=== PATIENT | male | born 1995 | race African-American/Black ===

== ENCOUNTER 2018-12-04 23:00 | Emergency (ER) | payer SELFPAY ==
[~2018-12-04] VITALS: Ht 172.7 cm; Wt 66.5 kg
--- NOTE | 2018-12-04 23:12 | ED.ADGEN ---
Past History Past Medical History: Anemia, Bronchitis, Other Smoking: Cigarettes Additional Smoking Information: Vapes Alcohol Use: Occasionally Adult General Chief Complaint Chief Complaint ".. I ve been coughing a lot.. some discolored sputum.. . sick.. I ve been vaping.. .. and my girl told me I should quit and get checked out...I need to get work excuse.. I work at [employer].... Sometime I cough so hard.. my chest hurts..." HPI HPI Patient is a 23 year old male who presents with above hx and complaints cough, chest pain, myalgia, dyspnea, and wheezing. Patient does give a history of tobacco use and Vaping. Patient shortly after arrival stated he did not like needles and refused lab draws. Did agree to strep screen and flu swabs. No recent travel. No specific ill contacts. No history immunosuppression. Symptoms of this cough and dyspnea have increased with his use of Vaping products. Patient is having history of anemia and asthma as a child. Review of Systems Review of Systems Constitutional: Denies fever or chills [] Eyes: Denies change in visual acuity, redness, or eye pain [] HENT: Denies nasal congestion or sore throat [] Respiratory: Complaints of cough, wheezing and shortness of breath [] Cardiovascular: No additional information not addressed in HPI [] GI: Denies abdominal pain, nausea, vomiting, bloody stools or diarrhea [] : Denies dysuria or hematuria [] Musculoskeletal: Denies back pain or joint pain [] Integument: Denies rash or skin lesions [] Neurologic: Denies headache, focal weakness or sensory changes [] Endocrine: Denies polyuria or polydipsia [] All other systems were reviewed and found to be within normal limits, except as documented in this note. Family History Family History Noncontributory to presentation Current Medications Current Medications Current Medications Medications (Trade) Dose Ordered Sig/Bin Start Time Stop Time Status Last Admin Dose Admin Albuterol Sulfate (Ventolin Hfa Inhaler) 2 puff 1X ONCE 12/04/18 23:15 12/04/18 23:31 DC 12/04/18 23:22 2 PUFF Lactated Ringer's 1,000 ml @ 1,000 mls/hr Q1H 12/05/18 00:00 12/05/18 00:59 DC Prednisone (Prednisone) 50 mg 1X ONCE 12/04/18 23:45 12/04/18 23:46 DC 12/04/18 23:36 50 MG Allergies Allergies Allergies Coded Allergies Type Severity Reaction Last Updated Verified No Known Drug Allergies 12/04/18 No Physical Exam Physical Exam Constitutional: Moderate acute distress, non-toxic appearance. [] HENT: Normocephalic, atraumatic, bilateral external ears normal, oropharynx moist, no oral exudates, nose normal. [] Eyes: PERRLA, EOMI, conjunctiva pale, no discharge. [] Neck: Normal range of motion, no tenderness, supple, no stridor. [] Cardiovascular: Bradycardia Heart rate regular rhythm, no murmur [] Lungs & Thorax: Bilateral breath sounds equal at apex with scattered wheezes on auscultation [] Abdomen: Bowel sounds normal, soft, no tenderness, no masses, no pulsatile masses. [] Skin: Warm, dry, no erythema, no rash. [] Back: No tenderness, no CVA tenderness. [] Extremities: No tenderness, no cyanosis, no clubbing, ROM intact, no edema. No cording in legs Neurologic: Alert and oriented X 3, normal motor function, normal sensory function, no focal deficits noted. [] Psychologic: Affect anxious, judgement normal, mood normal. [] Current Patient Data Vital Signs Vital Signs Date Time Temp Pulse Resp B/P (MAP) Pulse Ox O2 Delivery O2 Flow Rate FiO2 12/04/18 23:51 97.9 71 16 97 Room Air Lab Results Laboratory Tests Test 12/04/18 23:36 12/04/18 23:42 Influenza Type A (Rapid) Negative (NEGATIVE) Influenza Type B (Rapid) Negative (NEGATIVE) Group A Streptococcus Rapid Negative (NEGATIVE) EKG EKG My interpretation EKG shows a sinus rhythm at 65 bpm. There is an complete right bundle branch block. Some nonspecific anterior septal changes. But no findings acute STEMI of contralateral changes[] Radiology/Procedures Radiology/Procedures [][address] [address] IMAGING REPORT Signed PATIENT: MIRIAM MCCARTHY LACCOUNT: [id number] : 1995 LOCATION: ER AGE: 23 SEX: M EXAM STATUS: REG ER ORD. PHYSICIAN: VALERY LOMBARDO MD REASON: cp, vaping, dyspnea PROCEDURE: CHEST PA & LATERAL CHEST PA LATERAL Technique: PA and lateral views of the chest were obtained. Clinical History: Chest pain vaping and dyspnea Comparison: None. Findings: The heart and pulmonary vasculature appear within normal limits. The lungs are clear. The pleural margins are clear. Impression: No acute chest process is seen. Electronically signed by: Jorje Tavarez III, MD (12/04/2018 11:59 PM) [facility] [place] DICTATED AND SIGNED BY: JORJE TAVAREZ III, MD DATE: 12/04/18 5565 CC: VALERY LOMBARDO MD; PCP,NO ~ Course & Med Decision Making Course & Med Decision Making Pertinent Labs and Imaging studies reviewed. (See chart for details) Pt. refused meds except. Strept. and Flu test. Patient encouraged to stop smoking and Vaping. Patient return if he elects to complete his workup for chest pain in his cough. He didn't take prednisone 50 mg day for 5 days. Patient uses MDI 2 puffs 4 times a day. Patient encouraged to return if any concerns. Patient encouraged follow-up primary care. [] Final Impression Final Impression 1. Bronchitis[] 2. Viral syndrome 3. Tobacco and Vaping use 4. Hx. of Anemia Dragon Disclaimer Dragon Disclaimer This electronic medical record was generated, in whole or in part, using a voice recognition dictation system. Dragon Disclaimer This chart was dictated in whole or in part using Voice Recognition software in a busy, high-work load, and often noisy Emergency Department environment. It may contain unintended and wholly unrecognized errors or omissions. VALERY LOMBARDO MD Dec 04, 2018 23:12
[2018-12-04] MEDS ORDERED: ALBUTEROL SULFATE 8GM INHALER. INH ONE (23:15)
[2018-12-04] MEDS ORDERED: predniSONE 10 MG TABLET PO ONE (23:45)
[2018-12-04 23:51] VITALS: BP 111/62
--- NOTE | 2018-12-04 23:59 | EKG ---
[address] [address] Test Date: 2018-12-04 Test Time: 23:54:48 Pat Name: MIRIAM MCCARTHY Department: Room: Gender: M Stereoptician: : 1995 Requested By: VALERY LOMBARDO Order Number: [id number] Reading MD: Measurements Intervals [place] Rate: 65 P: 28 [place]: 158 QRS: 72 QRSD: 84 T: 41 QT: 350 QTc: 365 Interpretive Statements SINUS RHYTHM INCOMPLETE RIGHT BUNDLE BRANCH BLOCK QRS(T) CONTOUR ABNORMALITY CONSIDER ANTEROSEPTAL MYOCARDIAL DAMAGE POSSIBLY ABNORMAL ECG RI6.01 No previous ECG available for comparison
[2018-12-05] MEDS ORDERED: IV RINGERS SOLUTION,LACTATED 1,000 ML IV SCH
--- NOTE | 2018-12-05 00:02 | RAD ---
CHEST PA LATERAL Technique: PA and lateral views of the chest were obtained. Clinical History: Chest pain vaping and dyspnea Comparison: None. Findings: The heart and pulmonary vasculature appear within normal limits. The lungs are clear. The pleural margins are clear. Impression: No acute chest process is seen. Electronically signed by: Dayne Vargas III, MD (12/04/2018 11:59 PM) [facility]
[2018-12-05 00:45] LABS: INFLUENZA A PATIENT NEGATIVE (NEGATIVE); INFLUENZA B PATIENT NEGATIVE (NEGATIVE)
[2018-12-05] MEDS ORDERED: PRED50TA PO (02:17)
== END 2018-12-05 02:20 | disposition home or self-care (01) ==
LOC: ER 23:00
DX: J20.9 Acute bronchitis, unspecified (principal); B34.9 Viral infection, unspecified; F17.210 Nicotine dependence, cigarettes, uncomplicated; Z86.2 Personal history of diseases of the blood and blood-forming organs and certain disorders involving the immune mechanism
CPT/HCPCS: 71046; 87070; 87804; 87880; 93005; 94640; 99285; J7512; J7613

== ENCOUNTER 2019-06-18 02:57 | Emergency (ER) | payer SELFPAY ==
[~2019-06-18] VITALS: Ht 170.2 cm; Wt 63.0 kg
[~2019-06-18 02:57] MED LIST: PRED50TA PO
--- NOTE | 2019-06-18 03:23 | PHYS DOC ---
Past History Past Medical History: Anemia, Bronchitis, Other Past Surgical History: No Surgical History Smoking: Cigarettes Alcohol Use: Occasionally Drug Use: None General Adult EDM: Chief Complaint: SEXUALLY TRANSMITTED DISEASE HPI: HPI: 23-year-old male presents with penile discharge. He does have yellowish discharge from his penis today. He believes that his significant other has been having sexual relations with someone else. He is also had burning with urination yesterday and today. He wants to be treated prophylactically. He denies fever chills. He has no other complaints. Review of Systems: Review of Systems: Constitutional: Denies fever or chills Eyes: Denies change in visual acuity HENT: Denies nasal congestion or sore throat Respiratory: Denies cough or shortness of breath Cardiovascular: Denies chest pain or edema GI: Denies abdominal pain, nausea, vomiting, bloody stools or diarrhea : Penile discharge Musculoskeletal: Denies back pain or joint pain Integument: Denies rash Neurologic: Denies headache, focal weakness or sensory changes Endocrine: Denies polyuria or polydipsia Lymphatic: Denies swollen glands Psychiatric: Denies depression or anxiety Heart Score: Risk Factors: Risk Factors: DM, Current or recent (<one month) smoker, HTN, HLP, family history of CAD, obesity. Risk Scores: Score 0 - 3: 2.5% MACE over next 6 weeks - Discharge Home Score 4 - 6: 20.3% MACE over next 6 weeks - Admit for Clinical Observation Score 7 - 10: 72.7% MACE over next 6 weeks - Early Invasive Strategies Allergies: Allergies: Allergies Coded Allergies Type Severity Reaction Last Updated Verified No Known Drug Allergies 12/04/18 No Physical Exam: PE: Constitutional: Well developed, well nourished, no acute distress, non-toxic appearance. [] HENT: Normocephalic, atraumatic, bilateral external ears normal, oropharynx moist, no oral exudates, nose normal. [] Eyes: PERRLA, EOMI, conjunctiva normal, no discharge. [] Neck: Normal range of motion, no tenderness, supple, no stridor. [] Cardiovascular:Heart rate regular rhythm, no murmur [] Lungs & Thorax: Bilateral breath sounds clear to auscultation [] Abdomen: Bowel sounds normal, soft, no tenderness, no masses, no pulsatile masses. [] Skin: Warm, dry, no erythema, no rash. [] Back: No tenderness, no CVA tenderness. [] Extremities: No tenderness, no cyanosis, no clubbing, ROM intact, no edema. [] Neurologic: Alert and oriented X 3, normal motor function, normal sensory function, no focal deficits noted. [] Psychologic: Affect normal, judgement normal, mood normal. : Patient refused exam. [] EKG: EKG: [] Radiology/Procedures: Radiology/Procedures: [] Course & Med Decision Making: Course & Med Decision Making Pertinent Labs and Imaging studies reviewed. (See chart for details) The patient refused exam of his penis. He would like to be treated prophylactically. I will treat him with a gram of azithromycin and 250 mg of Rocephin. He is stable for discharge at this time. [] Dragon Disclaimer: Dragon Disclaimer: This electronic medical record was generated, in whole or in part, using a voice recognition dictation system. Departure Departure: Impression: Primary Impression: Concern about sexually transmitted disease in male without diagnosis Disposition: 01 HOME, SELF-CARE Condition: STABLE Referrals: PCPRANDY (PCP) Patient Instructions: Sexually Transmitted Disease, [id number] ALLEGRA NETTLES DO June 18, 2019 03:23
[2019-06-18 03:48] LABS: BILIRUBIN,URINE NEG (NEG); CLARITY,URINE HAZY; COLOR,URINE YELLOW; GLUCOSE,URINE NEG (NEG)
[2019-06-18 03:49] LABS: BACTERIA,URINE MOD /HPF (0-FEW); NITRITE,URINE NEG (NEG); RBC,URINE OCC /HPF (0-2); WBC,URINE >40 /HPF (0-4)
[2019-06-18] MEDS ORDERED: AZITHROMYCIN 250 MG TABLET. PO ONE (04:00)
[2019-06-18] MEDS ORDERED: cefTRIAXone IM 250 MG VIAL IM ONE (04:00)
== END 2019-06-18 03:43 | disposition home or self-care (01) ==
LOC: ER 02:57
DX: Z20.2 Contact with and (suspected) exposure to infections with a predominantly sexual mode of transmission (principal); F17.210 Nicotine dependence, cigarettes, uncomplicated; Z86.2 Personal history of diseases of the blood and blood-forming organs and certain disorders involving the immune mechanism
CPT/HCPCS: 81001; 87086; 87491; 87591; 96372; 99283; J0456; J0696; 36415

== ENCOUNTER 2019-06-21 16:30 | Emergency (ER) | payer SELFPAY ==
[~2019-06-21] VITALS: Ht 172.7 cm; Wt 64.5 kg
[2019-06-21 16:46] VITALS: BP 142/86
[2019-06-21] MEDS ORDERED: IV NORMAL SALINE 1,000ML 1,000 ML IV SCH (17:01)
--- NOTE | 2019-06-21 17:12 | PHYS DOC ---
Past History Past Medical History: No Pertinent History (WILDA SIMON MD) Past Surgical History: No Surgical History (WILDA SIMON MD) Smoking: Cigarettes Additional Smoking Information: 1/2 pack Alcohol Use: None Drug Use: None (WILDA SIMON MD) General Adult EDM: Chief Complaint: Palpitations HPI: HPI: Patient is a 23-year-old male who presents to the emergency department for evaluation. He states that for the past 3 to 4 days he has had a sense of palpitation, where his heart is beating fast. He denies any chest pain or significant shortness of breath, pleuritic pain, dizziness or lightheadedness. He has not had any numbness or weakness. He does admit to feeling anxious. He does admit to smoking marijuana regularly, and did recently take an oxycodone for back pain, but denies any stimulant use, including cocaine or amphetamines. He denies fevers or chills, or cough, or any other symptoms other than palpitations. He does admit to feeling anxious, and states his girlfriend also has anxiety. The patient was recently seen in the emergency department for penile discharge, 3 days ago, he states that his urinary and penile symptoms have improved. Review of his records revealed that he did test positive for both chlamydia and gonorrhea. He was treated with Rocephin and azithromycin in the emergency department. Upon initial assessment the patient's heart rate was noted to be in the 115-120 range, although after the patient has acclimated himself to his ER room, his heart rate is currently in the 80s. (WILDA SIMON MD) Review of Systems: Review of Systems: Constitutional: Denies fever or chills Eyes: Denies change in visual acuity HENT: Denies nasal congestion or sore throat Respiratory: Denies cough or shortness of breath, denies pleuritic chest pain Cardiovascular: Denies chest pain or edema GI: Denies abdominal pain, nausea, vomiting, bloody stools or diarrhea : Denies dysuria Musculoskeletal: Denies back pain or joint pain Integument: Denies rash Neurologic: Denies headache, focal weakness or sensory changes Endocrine: Denies polyuria or polydipsia Lymphatic: Denies swollen glands Psychiatric: Denies depression. Reports anxiety (WILDA SIMON MD) Heart Score: Risk Factors: Risk Factors: DM, Current or recent (<one month) smoker, HTN, HLP, family history of CAD, obesity. Risk Scores: Score 0 - 3: 2.5% MACE over next 6 weeks - Discharge Home Score 4 - 6: 20.3% MACE over next 6 weeks - Admit for Clinical Observation Score 7 - 10: 72.7% MACE over next 6 weeks - Early Invasive Strategies (WILDA SIMON MD) Current Medications: Current Meds: Current Medications Medications (Trade) Dose Ordered Sig/Bin Start Time Stop Time Status Last Admin Dose Admin Lorazepam (Ativan Inj) 1 mg 1X ONCE 06/21/19 17:15 06/21/19 17:16 UNV Sodium Chloride 1,000 ml @ 1,000 mls/hr Q1H 06/21/19 17:01 06/21/19 18:00 UNV (WILDA SIMON MD) Allergies: Allergies: Allergies Coded Allergies Type Severity Reaction Last Updated Verified No Known Drug Allergies 12/04/18 No (WILDA SIMON MD) Physical Exam: PE: PHYSICAL EXAM: CONSTITUTIONAL: Well developed, well nourished HEAD: normocephalic, atraumatic EENT: PERRL, EOMI. Conjunctivae normal color, sclerae non-icteric; moist mucous membranes. NECK: Supple, non-tender; no meningismus. LUNGS: Lungs CTA, breathing even and unlabored. Normal air movement. HEART: Regular tachycardia, no murmur CHEST: No deformity; non-tender ABDOMEN: The abdomen is soft, and non-tender, no masses or bruits. EXTREM: Normal ROM; no deformity, no calf tenderness. Normal pulses palpable in all extremities. There is no pedal edema. SKIN: No rash; no diaphoresis NEURO: Alert; normal speech and cognition; CN's grossly intact; strength grossly intact without focal deficit. BACK: No CVA TTP. PSYCHIATRIC: Patient appears mildly anxious. (WILDA SIMON MD) Current Patient Data: Labs: Laboratory Tests Test 06/21/19 16:55 White Blood Count 12.3 x10^3/uL Red Blood Count 4.89 x10^6/uL Hemoglobin 14.5 g/dL Hematocrit 44.6 % Mean Corpuscular Volume 91 fL Mean Corpuscular Hemoglobin 30 pg Mean Corpuscular Hemoglobin Concent 33 g/dL Red Cell Distribution Width 12.8 % Platelet Count 148 x10^3/uL Neutrophils (%) (Auto) 69 % Lymphocytes (%) (Auto) 21 % Monocytes (%) (Auto) 9 % Eosinophils (%) (Auto) 1 % Basophils (%) (Auto) 1 % Neutrophils # (Auto) 8.4 x10^3uL Lymphocytes # (Auto) 2.6 x10^3/uL Monocytes # (Auto) 1.0 x10^3/uL Eosinophils # (Auto) 0.1 x10^3/uL Basophils # (Auto) 0.1 x10^3/uL D-Dimer (Sendy) 0.56 mg/L Sodium Level 140 mmol/L Potassium Level 3.6 mmol/L Chloride Level 103 mmol/L Carbon Dioxide Level 25 mmol/L Anion Gap 12 Blood Urea Nitrogen 12 mg/dL Creatinine 1.1 mg/dL Estimated GFR (Cockcroft-Gault) 100.4 BUN/Creatinine Ratio 11 Glucose Level 103 mg/dL Calcium Level 9.2 mg/dL Magnesium Level 2.1 mg/dL Total Bilirubin 0.5 mg/dL Aspartate Amino Transf (AST/SGOT) 21 U/L Alanine Aminotransferase (ALT/SGPT) 27 U/L Alkaline Phosphatase 78 U/L Total Protein 7.7 g/dL Albumin 4.4 g/dL Albumin/Globulin Ratio 1.3 Urine Opiates Screen Pos Urine Methadone Screen Neg Urine Barbiturates Neg Urine Phencyclidine Screen Neg Urine Amphetamine/Methamphetamine Neg Urine Benzodiazepines Screen Neg Urine Cocaine Screen Neg Urine Cannabinoids Screen Pos Urine Ethyl Alcohol Neg Current Medications Medications (Trade) Dose Ordered Sig/Bin Route PRN Reason Start Time Stop Time Status Last Admin Dose Admin Sodium Chloride 1,000 ml @ 1,000 mls/hr Q1H IV 06/21/19 17:01 06/21/19 18:00 06/21/19 17:01 Lorazepam (Ativan Inj) 1 mg 1X ONCE IVP 06/21/19 17:15 06/21/19 17:16 DC 06/21/19 17:21 Vital Signs: Vital Signs Date Time Temp Pulse Resp B/P (MAP) Pulse Ox O2 Delivery O2 Flow Rate FiO2 06/21/19 16:46 98.3 117 20 142/86 (104) 99 (WILDA SIMON MD) EKG: EKG: [] Normal sinus rhythm at a rate of 108 bpm, normal axis, normal intervals, incomplete right bundle branch block, there are no acute ischemic ST/T changes. (WILDA SIMON MD) Radiology/Procedures: Radiology/Procedures: [] (WILDA SIMON MD) Course & Med Decision Making: Course & Med Decision Making Pertinent Labs and Imaging studies reviewed. (See chart for details) [] 6:00 PM: The patient's condition remains stable. His d-dimer was noted to be elevated, d-dimer was ordered due to the patient's tachycardia upon arrival. Clinical suspicion for PE is low but due to his elevated d-dimer CT angiography will be obtained. Patient care will be turned over to Dr. Mcconnell at shift change, pending CT angiography, report given. The patient is currently resting comfortably, he is calm, his heart rate is in the 70s. I do believe his symptoms are related to anxiety. The importance of close outpatient follow-up, both for further check of his blood pressure, as well as follow-up of his thyroid function tests were discussed explicitly with the patient. The importa nce of establishing care with a PCP was stressed. Return precautions were discussed in detail, if the patient CT angiogram is negative he is stable to be discharged home. (WILDA SIMON MD) Course & Med Decision Making Assumed from Dr. Simon at 1800. In summary, 23M p/w palpitations. Elevated dimer. CTAC pending, now resulted, clear lungs no PE. Will DC home with outpatient FU. Return precautions given. (NARA PEREZ DO) Priya Disclaimer: Priya Disclaimer: This electronic medical record was generated, in whole or in part, using a voice recognition dictation system. (WILDA SIMON MD) Departure Departure: Impression: Primary Impression: Anxiety Additional Impression: Tachycardia Disposition: HOME, SELF-CARE Condition: STABLE Patient Instructions: Anxiety and Panic Attacks, Hypertension, Palpitations WILDA SIMON MD June 21, 2019 17:12 NARA PEREZ DO June 21, 2019 18:35
[2019-06-21 17:31] LABS: BASO # 0.1 x10^3/uL (0.0-0.2); BASO % 1 % (0-3); EOS # 0.1 x10^3/uL (0.0-0.7); EOS % 1 % (0-3); HEMATOCRIT 44.6 % (39.0-53.0); HEMOGLOBIN 14.5 g/dL (13.0-17.5); LYMPH # 2.6 x10^3/uL (1.0-4.8); LYMPH % 21 % (24-48); MEAN CORPUSCULAR HEMOGLOBIN 30 pg (25-35); MEAN CORPUSCULAR HGB CONC 33 g/dL (31-37); MEAN CORPUSCULAR VOLUME 91 fL (79-100); MONO % 9 % (0-9); NEUT # 8.4 x10^3uL (1.8-7.7); NEUT % 69 % (31-73); PLATELET COUNT 148 x10^3/uL (140-400); RED BLOOD COUNT 4.89 x10^6/uL (4.30-5.70); RED CELL DISTRIBUTION WIDTH 12.8 % (11.5-14.5); WHITE BLOOD COUNT 12.3 x10^3/uL (4.0-11.0)
[2019-06-21 17:37] LABS: AMPHETAMINE/METHAMPHETAMINE NEG (NEG); BARBITURATES NEG (NEG); BENZODIAZEPINES NEG (NEG); CANNABINOIDS POS (NEG); COCAINE NEG (NEG); METHADONE NEG (NEG); OPIATES POS (NEG); PHENCYCLIDINE NEG (NEG)
[2019-06-21 17:38] LABS: CALCIUM 9.2 mg/dL (8.5-10.1); CREATININE 1.1 mg/dL (0.7-1.3); GFR 100.4; POTASSIUM 3.6 mmol/L (3.5-5.1)
[2019-06-21 17:44] LABS: ALBUMIN 4.4 g/dL (3.4-5.0); ALBUMIN/GLOBULIN RATIO 1.3 (1.0-1.7); MAGNESIUM 2.1 mg/dL (1.8-2.4); TOTAL BILIRUBIN 0.5 mg/dL (0.2-1.0); TOTAL PROTEIN 7.7 g/dL (6.4-8.2)
[2019-06-21] MEDS ORDERED: IOHEXOL 350 MG/ML 100 ML VIAL. IV ONE (18:00)
--- NOTE | 2019-06-21 18:25 | RAD ---
CTA chest with contrast dated 06/21/2019. No comparison available. CLINICAL INDICATION: Tachycardia and elevated d-dimer. TECHNIQUE: Continues axial imaging the chest performed following the intravenous administration of 100 cc Omnipaque 350. Study was performed as dedicated PE protocol with thin cut coronal MIPS 3-D reconstruction. One or more of the following individualized dose reduction techniques were utilized for this examination: 1. Automated exposure control 2. Adjustment of the mA and/or kV according to patient size 3. Use of iterative reconstruction technique. FINDINGS: Contrast bolus is adequate. No evidence of central, lobar or segmental pulmonary embolus. Segmental branches not well evaluated based on technique. Heart size within normal limits. No pericardial effusion. No mediastinal, hilar or axillary lymphadenopathy. Thyroid gland is unremarkable. Central airways are patent. Lungs are clear. No consolidation or pleural effusion. No pneumothorax. Limited images of upper abdomen unremarkable. No acute bony abnormality. Bone windows show no acute findings. Mild multilevel spondylosis. IMPRESSION: 1. No evidence of central, lobar or segmental pulmonary embolus. 2. Clear lungs. Electronically signed by: Som Brownlee MD (06/21/2019 6:22 PM) [facility]
--- NOTE | 2019-06-22 03:55 | EKG ---
[address] [address] Test Date: 2019-06-21 Test Time: 16:54:40 Pat Name: MIRIAM MCCARTHY Department: Room: Gender: M Radiologic Electronic Specialist: JIMMY : 1995 Requested By: WILDA MARTIN Order Number: [id number] Reading MD: Jameson Pereira Measurements Intervals [place] Rate: 108 P: 52 [place]: 158 QRS: 87 QRSD: 88 T: 41 QT: 304 QTc: 411 Interpretive Statements SINUS TACHYCARDIA INCOMPLETE RIGHT BUNDLE BRANCH BLOCK Electronically Signed On 06-22-2019 8:23:55 CDT by Jameson Pereira
[2019-06-22 14:47] LABS: FREE T4 1.2 ng/dL (0.76-1.46); THYROID STIM HORMONE (TSH) 0.638 uIU/mL (0.358-3.740)
== END 2019-06-21 18:54 | disposition home or self-care (01) ==
LOC: ER 16:30
DX: F41.9 Anxiety disorder, unspecified (principal); R00.0 Tachycardia, unspecified; F17.210 Nicotine dependence, cigarettes, uncomplicated
CPT/HCPCS: 36415; 71275; 80053; 80307; 83735; 84439; 84443; 85025; 85379; 93005; 96374; 99285; J2060; Q9967; J7030